=== PATIENT | female | born 1945 | race African-American/Black ===

== ENCOUNTER 2018-09-28 16:08 | Emergency (ER) | payer MEDICARE ==
[~2018-09-28] VITALS: Ht 162.6 cm; Wt 92.0 kg
[~2018-09-28 16:08] MED LIST: METF-414 PO
[2018-09-28 18:45] LABS: HEMATOCRIT. 39.2 % (36.0-48.0); HEMOGLOBIN. 12.5 g/dL (12.0-16.0); MEAN CORPUSCULAR HEMOGLOBIN 29.9 pg (28.0-32.0); MEAN CORPUSCULAR VOLUME 93.3 fL (81.0-99.0); MEAN PLATELET VOLUME 9.7 fl (7.4-10.4); PLATELET 211 x1000/uL (130-400); RED BLOOD CELL COUNT 4.19 mill/uL (4.2-5.4); RED CELL DISTRIBUTION WIDTH 16.8 % (11.6-14.6)
[2018-09-28 18:47] LABS: CHLORIDE 110 mEq/L (98-107)
[2018-09-28 18:48] LABS: INR 1.2
[2018-09-28 19:00] VITALS: BP 137/79
[2018-09-28 19:45] LABS: PLATELET ESTIMATE NORMAL
== END 2018-09-28 19:29 | disposition home or self-care (01) ==
LOC: ER 16:08
DX: R22.42 Localized swelling, mass and lump, left lower limb (principal); I51.9 Heart disease, unspecified; E11.9 Type 2 diabetes mellitus without complications; Z95.1 Presence of aortocoronary bypass graft; Z88.0 Allergy status to penicillin; Z88.3 Allergy status to other anti-infective agents; Z90.710 Acquired absence of both cervix and uterus
CPT/HCPCS: 36415; 93971; 99284